=== PATIENT | female | born 1995 | race Caucasian/White ===

== ENCOUNTER 2023-03-15 13:58 | Emergency (ER) | payer OTHER ==
[~2023-03-15] VITALS: Ht 170.2 cm; Wt 70.1 kg
[2023-03-15] MEDS ORDERED: SYED1TAB2 PO (19:29)
[2023-03-15] MEDS ORDERED: SYNT75TA PO (19:29)
[2023-03-15] MEDS ORDERED: KETOROLAC 60MG 2ML VIAL IM ONE (21:20)
[2023-03-15] MEDS ORDERED: methocarbamoL 500 MG TAB PO ONE (21:20)
[2023-03-15] MEDS ORDERED: predniSONE 20 MG TAB PO ONE (21:20)
[2023-03-15 22:06] LABS: HCG, SERUM QUALITATIVE NEGATIVE (NEGATIVE)
[2023-03-15] MEDS ORDERED: METH-1164 PO (23:25)
[2023-03-15] MEDS ORDERED: PRED20TA PO (23:25)
[2023-03-15] MEDS ORDERED: IBUP-1022 PO (23:25)
[2023-03-15 23:46] VITALS: BP 138/80; TEMP 98; O2SAT 100
== END 2023-03-15 23:56 | disposition home or self-care (01) ==
LOC: M ED 13:58
DX: M50.90 Cervical disc disorder, unspecified, unspecified cervical region (principal); E03.9 Hypothyroidism, unspecified; Z79.3 Long term (current) use of hormonal contraceptives; Z79.899 Other long term (current) drug therapy
CPT/HCPCS: 36415; 72125; 84703; 99284; J1885; J7512

== ENCOUNTER 2023-08-19 07:31 | Day surgery (SDC) | payer OTHER ==
[~2023-08-19] VITALS: Ht 16.5 cm; Wt 71.3 kg
[~2023-08-19 07:31] MED LIST: IBUP-1022 PO; METH-1164 PO; NS 1,000 ML IV ONE; PRED20TA PO; PROA1AER2 INH; SYED1TAB2 PO; SYNT75TA PO
[2023-08-19] MEDS ORDERED: propofoL 200 MG/20 ML VIAL As Ordered ONE (09:02)
[2023-08-19 09:19] VITALS: TEMP 98.5
[2023-08-19 09:36] VITALS: BP 120/81; O2SAT 100
== END 2023-08-19 09:46 | disposition home or self-care (01) ==
LOC: M OPP 07:31
PROVIDERS: ATTEND Internal Medicine Gastroenterology
DX: Z12.11 Encounter for screening for malignant neoplasm of colon (principal); K64.8 Other hemorrhoids; K64.4 Residual hemorrhoidal skin tags; Z86.010 Personal history of colon polyps; E03.9 Hypothyroidism, unspecified; J45.909 Unspecified asthma, uncomplicated; Z79.890 Hormone replacement therapy; Z79.899 Other long term (current) drug therapy; Z88.0 Allergy status to penicillin